=== PATIENT | female | born 1935 | race Caucasian/White ===

== ENCOUNTER 2018-09-15 14:15 | Inpatient (IN) | payer MEDICARE, BC ==
[~2018-09-15] VITALS: Ht 152.4 cm; Wt 54.4 kg
[2018-09-15] MEDS ORDERED: IV NS 0.9% 500 ML BAG IV ONE (15:30)
[2018-09-15] MEDS ORDERED: NA PHOS,M-B/NA PHOS,DI-BA 1 EA ENEMA RC ONE ×2 (15:30→15:38)
[2018-09-15] MEDS ORDERED: MAGNESIUM CITRATE 296 ML BOTTLE PO ONE (15:30)
[2018-09-15] MEDS ORDERED: MAGNESIUM CITRATE 296 ML BOTTLE ONE (15:39)
[2018-09-15 15:40] LABS: BASOPHILS # (AUTO) 0.1 /CMM (0.0-0.2); BASOPHILS % (AUTO) 0.6 % (0.0-2.0); EOSINOPHILS % (AUTO) 1.3 % (0.0-6.0); HEMATOCRIT 37 % (33-45); HEMOGLOBIN 12.3 g/dL (11.5-14.8); LYMPHOCYTES # (AUTO) 1.6 /CMM (0.8-4.8); LYMPHOCYTES % (AUTO) 15.9 % (20.0-44.0); MEAN CORPUSCULAR HGB CONC 33 g/dl (31.0-36.0); MEAN CORPUSCULAR VOLUME 87 fL (82-100); MONOCYTES # (AUTO) 1.3 /CMM (0.1-1.30); MONOCYTES % (AUTO) 12.8 % (2.0-12.0); NEUTROPHILS # (AUTO) 6.9 /CMM (1.8-8.9); NEUTROPHILS % (AUTO) 69.4 % (43.0-81.0); PLATELET COUNT (AUTO) 370 /CMM (150-450); RED BLOOD CELL COUNT(AUTO) 4.26 MIL/uL (4.0-5.2); WHITE BLOOD COUNT (AUTO) 9.9 K/uL (4.3-11.0)
[2018-09-15 15:48] LABS: CALCIUM, SERUM 9.1 mg/dL (8.5-10.1); CARBON DIOXIDE 26 mmol/L (21-32); CHLORIDE 99 mmol/L (98-107); CREATININE 0.6 mg/dL (0.6-1.3); GLUCOSE 101 mg/dL (74-106); POTASSIUM 4.1 mmol/L (3.5-5.1); SODIUM SERUM 135 mmol/L (136-145); UREA NITROGEN, BLOOD 21 mg/dL (7-18)
[2018-09-15 15:55] LABS: ALANINE AMINOTRANSFERASE 23 U/L (12-78); ALBUMIN 3.6 g/dL (3.4-5.0); ALKALINE PHOSPHATASE 82 U/L (46-116); ASPARTATE AMINOTRANSFERASE 20 U/L (15-37); BILIRUBIN,DIRECT 0.1 mg/dL (0.0-0.2); BILIRUBIN,TOTAL 0.3 mg/dL (0.2-1.0); LIPASE 161 U/L (73-393); TOTAL PROTEIN, SERUM 7.7 g/dL (6.4-8.2)
[2018-09-15] MEDS ORDERED: MAGNESIUM HYDROXIDE 30 ML UDC PO PRN (19:30)
[2018-09-15] MEDS ORDERED: MAG HYDROX/AL HYDROX/SIMETH 30 ML UDC PO PRN (19:30)
[2018-09-15] MEDS ORDERED: HYDROCODONE/APAP 5/325MG 1 EACH TABLET PO PRN (19:30)
[2018-09-15] MEDS ORDERED: ZOLPIDEM TARTRATE 5 MG TABLET PO PRN (19:30)
[2018-09-15] MEDS ORDERED: ACETAMINOPHEN 325 MG TABLET PO PRN (19:30)
[2018-09-15] MEDS ORDERED: Z GUARD REMEDY 2 OZ OINT TP PRN (19:30)
[2018-09-15] MEDS ORDERED: NA PHOS,M-B/NA PHOS,DI-BA 1 EA ENEMA RC PRN (19:30)
[2018-09-15] MEDS ORDERED: ONDANSETRON HCL/PF 4 MG/2 ML VIAL IVP PRN (19:30)
[2018-09-15] MEDS: IV D5/ 0.9% NACL 1,000 ML IV PRN ×2 (19:47→23:55)
[2018-09-15 20:00] VITALS: BP 138/90
[2018-09-15] MEDS ORDERED: MEMA10TA PO (21:18)
[2018-09-15] MEDS ORDERED: DOCU-141 PO (21:18)
[2018-09-15] MEDS ORDERED: BISA10SU61 RC (21:18)
[2018-09-15] MEDS ORDERED: MIDO10TA PO (21:18)
[2018-09-15] MEDS ORDERED: POLY17PO4 PO (21:18)
[2018-09-15] MEDS ORDERED: RIVA6CAP5 PO (21:18)
[2018-09-15] MEDS ORDERED: ACET325C5 PO ×2 (21:18)
[2018-09-15] MEDS ORDERED: LEVO75TA7 PO (21:18)
[2018-09-15] MEDS ORDERED: IV NS 0.9% 500 ML IV ONE (23:30)
[2018-09-16] MEDS: IV D5/ 0.9% NACL 1,000 ML IV PRN (06:08)
[2018-09-16 07:22] LABS: BASOPHILS % (AUTO) 0.4 % (0.0-2.0); EOSINOPHILS % (AUTO) 1.9 % (0.0-6.0); HEMATOCRIT 32 % (33-45); HEMOGLOBIN 10.9 g/dL (11.5-14.8); LYMPHOCYTES # (AUTO) 1.7 /CMM (0.8-4.8); LYMPHOCYTES % (AUTO) 23.8 % (20.0-44.0); MEAN CORPUSCULAR HGB CONC 34 g/dl (31.0-36.0); MEAN CORPUSCULAR VOLUME 85 fL (82-100); MONOCYTES % (AUTO) 14.6 % (2.0-12.0); NEUTROPHILS # (AUTO) 4.2 /CMM (1.8-8.9); NEUTROPHILS % (AUTO) 59.3 % (43.0-81.0); PLATELET COUNT (AUTO) 332 /CMM (150-450); RED BLOOD CELL COUNT(AUTO) 3.78 MIL/uL (4.0-5.2)
[2018-09-16] MEDS ORDERED: LEVOTHYROXINE SODIUM 75 MCG TABLET PO SCH (07:30)
[2018-09-16 08:00] VITALS: BP 125/71
[2018-09-16 08:09] LABS: CALCIUM, SERUM 8.2 mg/dL (8.5-10.1); CARBON DIOXIDE 23 mmol/L (21-32); CHLORIDE 106 mmol/L (98-107); CREATININE 0.5 mg/dL (0.6-1.3); GLUCOSE 98 mg/dL (74-106); MAGNESIUM 2.4 mg/dL (1.8-2.4); PHOSPHORUS 2.3 mg/dL (2.5-4.9); POTASSIUM 3.7 mmol/L (3.5-5.1); SODIUM SERUM 140 mmol/L (136-145); UREA NITROGEN, BLOOD 10 mg/dL (7-18)
[2018-09-16 08:15] LABS: CHOLESTEROL 191 mg/dL (<200); HDL CHOLESTEROL 56 mg/dL (40-60); LDL 117 mg/dL (0-99); TRIGLYCERIDES 79 mg/dL (30-150)
[2018-09-16] MEDS ORDERED: DOCUSATE SODIUM 100 MG CAPSULE PO SCH (09:00)
[2018-09-16] MEDS ORDERED: RIVASTIGMINE TARTRATE 1.5 MG CAPSULE PO SCH (09:00)
[2018-09-16] MEDS ORDERED: MIDODRINE HCL (5MG) 5 MG TABLET PO SCH (09:00)
[2018-09-16] MEDS ORDERED: MEMANTINE HCL 5 MG TABLET PO SCH (09:00)
[2018-09-16] MEDS ORDERED: POLYETHYLENE GLYCOL 3350 17 GM POWD.PACK PO SCH (09:00)
[2018-09-16] MEDS ORDERED: POLY17PO4 PO (10:41)
[2018-09-16] MEDS ORDERED: K PHOS NEUTRAL 250 MG TABLET PO ONE (11:30)
[2018-09-16] MEDS ORDERED: DOCU-141 PO (17:42)
[2018-09-25] MEDS ORDERED: SORB30SO2 GT (22:45)
== END 2018-09-16 11:30 | DRG 388 ==
LOC: ER 14:19 → EDBD 14:19 → MEDSG2 18:33
PROVIDERS: ADMIT Nurse Practitioner Acute Care; ATTEND Nurse Practitioner Acute Care
DX: K56.7 Ileus, unspecified (principal); G93.41 Metabolic encephalopathy; E87.1 Hypo-osmolality and hyponatremia; D68.59 Other primary thrombophilia; K59.00 Constipation, unspecified; E86.0 Dehydration; E03.9 Hypothyroidism, unspecified; G30.9 Alzheimer's disease, unspecified; F02.80 Dementia in other diseases classified elsewhere, unspecified severity, without behavioral disturbance, psychotic disturbance, mood disturbance, and anxiety; Z96.651 Presence of right artificial knee joint; Z95.0 Presence of cardiac pacemaker; E83.51 Hypocalcemia; E83.39 Other disorders of phosphorus metabolism; D64.9 Anemia, unspecified
CPT/HCPCS: 36415; 80048-TC; 80061-TC; 80076-TC; 83690-TC; 83735-TC; 84100-TC; 84443-TC; 85025-TC; 87081-TC; 97116-TC; 97530-TC; G0378; J7040; J7042

== ENCOUNTER 2018-09-22 10:30 | Inpatient (IN) | payer MEDICARE, BC ==
[~2018-09-22] VITALS: Ht 148.6 cm; Wt 53.1 kg
[~2018-09-22 10:30] MED LIST: ACET325C5 PO; DOCU-141 PO; LEVO75TA7 PO; MEMA10TA PO; MIDO10TA PO; POLY17PO4 PO; RIVA6CAP5 PO
--- NOTE | 2018-09-22 10:53 | NUR ---
BIB FAMILY FOR DIFFUSE ABDOMINAL AND LOWER BACK PAIN, PATIENT TRANSFERED TO BED, AT BEDSIDE, PLACED ON THE MONITOR. PENDING MD FU.
[2018-09-22] MEDS ORDERED: POLYETHYLENE GLYCOL 3350 17 GM POWD.PACK PO ONE (11:00)
[2018-09-22] MEDS ORDERED: IV NS 0.9% 500 ML BAG IV ONE (11:00)
[2018-09-22 11:12] LABS: BASOPHILS # (AUTO) 0.1 /CMM (0.0-0.2); BASOPHILS % (AUTO) 0.5 % (0.0-2.0); EOSINOPHILS % (AUTO) 0.7 % (0.0-6.0); HEMATOCRIT 36 % (33-45); HEMOGLOBIN 12.1 g/dL (11.5-14.8); LYMPHOCYTES # (AUTO) 1.2 /CMM (0.8-4.8); LYMPHOCYTES % (AUTO) 11.5 % (20.0-44.0); MEAN CORPUSCULAR HGB CONC 34 g/dl (31.0-36.0); MEAN CORPUSCULAR VOLUME 87 fL (82-100); MONOCYTES # (AUTO) 1.5 /CMM (0.1-1.30); MONOCYTES % (AUTO) 14.1 % (2.0-12.0); NEUTROPHILS # (AUTO) 7.7 /CMM (1.8-8.9); NEUTROPHILS % (AUTO) 73.2 % (43.0-81.0); PLATELET COUNT (AUTO) 424 /CMM (150-450); RED BLOOD CELL COUNT(AUTO) 4.18 MIL/uL (4.0-5.2); WHITE BLOOD COUNT (AUTO) 10.6 K/uL (4.3-11.0)
--- NOTE | 2018-09-22 11:14 | NUR ---
IV ESTABLISHED ON RAC G20, BLOOD SAMPLES OBTAINED AND SENT TO LAB. PER , TRY STRAIGHT CATH LATER, PATIENT WAS JUST RECENTLY CHANGED PRIOR TO COMING HERE AND SHE'S DRY AT THIS TIME.
--- NOTE | 2018-09-22 11:18 | NUR ---
GOT MS BED 203
[2018-09-22 11:19] LABS: CALCIUM, SERUM 9.2 mg/dL (8.5-10.1); CARBON DIOXIDE 29 mmol/L (21-32); CHLORIDE 102 mmol/L (98-107); CREATININE 0.7 mg/dL (0.6-1.3); GLUCOSE 92 mg/dL (74-106); POTASSIUM 4.6 mmol/L (3.5-5.1); SODIUM SERUM 137 mmol/L (136-145); UREA NITROGEN, BLOOD 12 mg/dL (7-18)
[2018-09-22 11:25] LABS: ALANINE AMINOTRANSFERASE 27 U/L (12-78); ALBUMIN 3.4 g/dL (3.4-5.0); ALKALINE PHOSPHATASE 86 U/L (46-116); ASPARTATE AMINOTRANSFERASE 29 U/L (15-37); BILIRUBIN,TOTAL 0.3 mg/dL (0.2-1.0); LIPASE 596 U/L (73-393); TOTAL PROTEIN, SERUM 7.3 g/dL (6.4-8.2)
[2018-09-22] MEDS ORDERED: POLY17PO4 PO (11:52)
[2018-09-22] MEDS ORDERED: SENN-168 PO (11:52)
--- NOTE | 2018-09-22 11:54 | NUR ---
REPORT GIVEN TO KEVIN Montenegro RN.
--- NOTE | 2018-09-22 12:32 | NUR ---
PATIENT TRANSFERRED TO ROOM 203 MED SURG.
--- NOTE | 2018-09-22 12:40 | NUR ---
MS FASHION MODEL NOTES Received Patient comfortable and resting in bed from ER at this time with at bedside. A/O x 1 with episodes of confusion. History of dementia. VS stable with no acute distress. Breathing even and unlabored on room air with no respiratory distress. Denies pain at this time. Skin intact. 20g PIV on RIGHT FOREARM clean, dry and intact with IVF NS running at 100ml/hr. Safety precautions in place. Bed locked and set to lowest position with side rails x 2 up. All needs rendered at this time. Will continue to monitor.
[2018-09-22] MEDS ORDERED: Z GUARD REMEDY 2 OZ OINT TP PRN (14:30)
[2018-09-22] MEDS ORDERED: ZOLPIDEM TARTRATE 5 MG TABLET PO PRN (14:30)
[2018-09-22] MEDS ORDERED: ACETAMINOPHEN 325 MG TABLET PO PRN (14:30)
[2018-09-22] MEDS ORDERED: HYDROCODONE/APAP 5/325MG 1 EACH TABLET PO PRN (14:30)
[2018-09-22] MEDS ORDERED: ONDANSETRON HCL/PF 4 MG/2 ML VIAL IVP PRN (14:30)
[2018-09-22] MEDS: IV NS 0.9% 1,000 ML IV PRN (15:34)
[2018-09-22 16:00] VITALS: BP 124/58
[2018-09-22] MEDS ORDERED: BISACODYL SUPP (10 MG) 10 MG/SUPP.RECT SUPP.RECT RC PRN (19:00)
[2018-09-22] MEDS ORDERED: MAGNESIUM CITRATE 296 ML BOTTLE PO ONE (19:00)
[2018-09-22] MEDS: LACTULOSE 10 G/15 ML UDC (PYXIS) PO SCH (19:40)
[2018-09-22] MEDS: SORBITOL SOLUTION 30 ML PO SCH (19:42)
[2018-09-22 20:00] VITALS: BP 131/96
--- NOTE | 2018-09-22 20:00 | NUR ---
MS RN CLOSING NOTES Patient comfortable and resting in bed with at bedside. A/O x 1 with episodes of confusion. History of dementia. VS stable with no acute distress. Breathing even and unlabored on room air with no respiratory distress. Denies pain at this time. Skin intact. 20g PIV on RIGHT FOREARM clean, dry and intact with IVF NS running at 100ml/hr. Safety precautions in place. Bed locked and set to lowest position with side rails x 2 up. All needs rendered at this time. Will endorse plan of care to oncoming shift.
[2018-09-22 20:04] VITALS: BP 131/96
--- NOTE | 2018-09-22 20:10 | NUR ---
RN OPENING NOTES RECEIVED PATIENT AWAKE RESTING COMFORTABLY IN BED. AT BEDSIDE. PATIENT IS A/O X 1-2. NO SIGNS OF RESPIRATORY DISTRESS. PATIENT DENIES SHORTNESS OF BREATH. IV SITE INTACT. PATIENT DENIES PAIN AT THIS TIME. SAFETY PRECAUTIONS IMPLEMENTED. CALL LIGHT WITHIN REACH. WILL CONTINUE TO MONITOR PATIENT THROUGHOUT THE SHIFT.
[2018-09-23] MEDS: IV NS 0.9% 1,000 ML IV PRN ×2 (00:11→18:26)
[2018-09-23] MEDS: LACTULOSE 10 G/15 ML UDC (PYXIS) PO SCH ×4 (00:23→20:04)
--- NOTE | 2018-09-23 01:00 | NUR ---
RN NOTES PATIENT HAD 2 BOWEL MOVEMENTS AT THIS TIME. BM WAS VERY LOOSE. WILL CONTINUE TO MONITOR PATIENT.
[2018-09-23 06:37] LABS: BASOPHILS % (AUTO) 0.4 % (0.0-2.0); EOSINOPHILS % (AUTO) 1.2 % (0.0-6.0); HEMATOCRIT 33 % (33-45); HEMOGLOBIN 11.1 g/dL (11.5-14.8); LYMPHOCYTES # (AUTO) 1.6 /CMM (0.8-4.8); LYMPHOCYTES % (AUTO) 16.6 % (20.0-44.0); MEAN CORPUSCULAR HGB CONC 33 g/dl (31.0-36.0); MEAN CORPUSCULAR VOLUME 85 fL (82-100); MONOCYTES % (AUTO) 10.4 % (2.0-12.0); NEUTROPHILS # (AUTO) 6.9 /CMM (1.8-8.9); NEUTROPHILS % (AUTO) 71.4 % (43.0-81.0); PLATELET COUNT (AUTO) 425 /CMM (150-450); RED BLOOD CELL COUNT(AUTO) 3.89 MIL/uL (4.0-5.2); WHITE BLOOD COUNT (AUTO) 9.6 K/uL (4.3-11.0)
[2018-09-23 06:47] LABS: CALCIUM, SERUM 8.2 mg/dL (8.5-10.1); CARBON DIOXIDE 24 mmol/L (21-32); CHLORIDE 104 mmol/L (98-107); CREATININE 0.5 mg/dL (0.6-1.3); GLUCOSE 91 mg/dL (74-106); MAGNESIUM 2.2 mg/dL (1.8-2.4); PHOSPHORUS 2.7 mg/dL (2.5-4.9); SODIUM SERUM 139 mmol/L (136-145); UREA NITROGEN, BLOOD 7 mg/dL (7-18)
--- NOTE | 2018-09-23 06:50 | NUR ---
RN CLOSING NOTES PATIENT IS RESTING COMFORTABLY IN BED. NO SIGNS OF RESPIRATORY DISTRESS. NO SIGNS OF SHORTNESS OF BREATH. IV SITE INTACT. NO SIGNS OF PAIN OR DISCOMFORT AT THIS TIME. SAFETY PRECAUTIONS IMPLEMENTED. CALL LIGHT WITHIN REACH. ENDORSE TO AM SHIFT.
--- NOTE | 2018-09-23 07:25 | NUR ---
RN OPENING NOTE PT WAS RECEIVED IN BED AT LOWEST AND LOCKED POSITION WITH SIDE RAILS UP, A/O X1-2, BREATHING EVEN AND UNLABORED ON RA, NO PAIN OR DISTRESS, NOTED TO BE INCONTINENT, IV IS PATENT AND INTACT, SAFETY PRECAUTIONS IN PLACE, CALL LIGHT WITHIN REACH, WILL MONITOR ACCORDINGLY
[2018-09-23 08:00] VITALS: BP 137/82
[2018-09-23] MEDS: SORBITOL SOLUTION 30 ML PO SCH (09:00)
--- NOTE | 2018-09-23 09:04 | NUR ---
RN NOTE SORBITOL WAS HELD THIS AM DUE THE PATIENT HAVING 3 SOFT/LOOSE STOOLS ACCORDING TO MANAGER TRANSFER. WILL MONITOR PT ACCORDINGLY.
--- NOTE | 2018-09-23 12:00 | NUR ---
RN NOTE URINE COLLECTED FOR UA AT THIS TIME
[2018-09-23 16:00] VITALS: BP 127/67
[2018-09-23 16:00] LABS: APPEARANCE,URINE CLEAR (CLEAR); BILIRUBIN,URINE NEGATIVE (NEGATIVE); BLOOD, URINE NEGATIVE Ery/uL (NEGATIVE); COLOR,URINE YELLOW (YELLOW); KETONES,URINE NEGATIVE (NEGATIVE); LEUKOCYTE ESTERASE ,URINE NEGATIVE (NEGATIVE); NITRITE, URINE NEGATIVE (NEGATIVE); PH,URINE 7.5 (5.0-8.0); PROTEIN,URINE NEGATIVE (NEGATIVE); UGLUCOSE NEGATIVE (NEGATIVE); UROBILINOGEN,URINE 0.2 EU/dL (0.2)
--- NOTE | 2018-09-23 19:14 | NUR ---
RN CLOSING NOTE PT IN BED AT LOWEST AND LOCKED POSITION WITH SIDE RAILS UP, A/O X1-2, BREATHING EVEN AND UNLABORED, NO PAIN OR DISTRESS, IV IS PATENT AND INTACT, SAFETY PRECAUTIONS IN PLACE, CALL LIGHT WITHIN REACH, ALL NEEDS ATTENDED TO, WILL ENDORSE TO ORGAN ASSEMBLER RN FOR ANISH.
[2018-09-23 20:06] VITALS: BP 117/83
[2018-09-24] MEDS: LACTULOSE 10 G/15 ML UDC (PYXIS) PO SCH ×4 (00:46→18:26)
[2018-09-24] MEDS: IV NS 0.9% 1,000 ML IV PRN (05:33)
--- NOTE | 2018-09-24 06:49 | NUR ---
MS RN NOTES AWAKE & RESPONSIVE. NOT IN ANY DISTRESS. NO SOB NOTED. DENIES ANY PAIN OR DISCOMFORT AT THIS TIME. WITH IVF INFUSING WELL. AM CARE DONE. MONITORED ACCORDINGLY. CALL LIGHT WITHIN REACH. BED IN LOWEST POSITION. SR UP X 3 FOR SAFETY WITH BED ALARM ON. WILL ENDORSE TO NEXT SHIFT.
[2018-09-24 06:54] LABS: ALANINE AMINOTRANSFERASE 24 U/L (12-78); ALBUMIN 3.3 g/dL (3.4-5.0); ALKALINE PHOSPHATASE 90 U/L (46-116); ASPARTATE AMINOTRANSFERASE 22 U/L (15-37); BILIRUBIN,TOTAL 0.2 mg/dL (0.2-1.0); CALCIUM, SERUM 8.6 mg/dL (8.5-10.1); CARBON DIOXIDE 23 mmol/L (21-32); CHLORIDE 101 mmol/L (98-107); CREATININE 0.5 mg/dL (0.6-1.3); GLUCOSE 90 mg/dL (74-106); LIPASE 135 U/L (73-393); MAGNESIUM 2.1 mg/dL (1.8-2.4); PHOSPHORUS 3.1 mg/dL (2.5-4.9); SODIUM SERUM 135 mmol/L (136-145); TOTAL PROTEIN, SERUM 6.5 g/dL (6.4-8.2); UREA NITROGEN, BLOOD 6 mg/dL (7-18)
[2018-09-24 07:31] LABS: BASOPHILS # (AUTO) 0.1 /CMM (0.0-0.2); BASOPHILS % (AUTO) 0.6 % (0.0-2.0); EOSINOPHILS % (AUTO) 1.1 % (0.0-6.0); HEMATOCRIT 36 % (33-45); HEMOGLOBIN 11.9 g/dL (11.5-14.8); LYMPHOCYTES # (AUTO) 1.3 /CMM (0.8-4.8); LYMPHOCYTES % (AUTO) 15.2 % (20.0-44.0); MEAN CORPUSCULAR HGB CONC 33 g/dl (31.0-36.0); MEAN CORPUSCULAR VOLUME 87 fL (82-100); MONOCYTES % (AUTO) 11.9 % (2.0-12.0); NEUTROPHILS # (AUTO) 6.2 /CMM (1.8-8.9); NEUTROPHILS % (AUTO) 71.2 % (43.0-81.0); PLATELET COUNT (AUTO) 445 /CMM (150-450); RED BLOOD CELL COUNT(AUTO) 4.18 MIL/uL (4.0-5.2); WHITE BLOOD COUNT (AUTO) 8.7 K/uL (4.3-11.0)
--- NOTE | 2018-09-24 07:44 | NUR ---
MS 2 RN AM NOTES PT WAS RECEIVED IN BED AT LOWEST AND LOCKED POSITION WITH SIDE RAILS UP, A/O X1-2, BREATHING EVEN AND UNLABORED ON RA, NO PAIN OR DISTRESS, INCONTINENT, IV IS PATENT AND INTACT WITH IVF NS AT 10O ML/HR TO RT AC INFUSING WELL, SAFETY PRECAUTIONS IN PLACE, CALL LIGHT WITHIN REACH, WILL MONITOR ACCORDINGLY
[2018-09-24 08:00] VITALS: BP 148/86
[2018-09-24] MEDS: SORBITOL SOLUTION 30 ML PO SCH (08:02)
[2018-09-24] MEDS ORDERED: IV NS 0.9% 1,000 ML BAG IV ONE (09:30)
[2018-09-24] MEDS: RIVASTIGMINE TARTRATE 1.5 MG CAPSULE PO SCH ×2 (10:01→17:10)
[2018-09-24] MEDS: MEMANTINE HCL 5 MG TABLET PO SCH ×2 (10:02→17:09)
[2018-09-24] MEDS: LEVOTHYROXINE SODIUM 75 MCG TABLET PO SCH (10:32)
[2018-09-24] MEDS: ENSURE ENLIVE 237 ML LIQUID (VANILLA) PO SCH ×2 (12:35→17:10)
[2018-09-24 16:00] VITALS: BP 140/84
--- NOTE | 2018-09-24 19:30 | NUR ---
RECEIVED PATIENT IN BED AWAKE. AO X 1, VERBALLY RESPONSIVE. NO ACUTE DISTRESS NOTED. NO SIGNS OF PAIN NOTED. IV SITE PATENT, INTACT; IVF INFUSING ORDERED. SAFETY REMINDERS GIVEN. ON LOW BED WITH BILATERAL UPPER SIDE RAILS UP. CALL OTERO WITHIN EASY REACH. WILL CONTINUE TO MONITOR.
[2018-09-24 20:00] VITALS: BP 131/75
[2018-09-25] MEDS: LACTULOSE 10 G/15 ML UDC (PYXIS) PO SCH ×4 (01:00→19:00)
--- NOTE | 2018-09-25 06:00 | NUR ---
PATIENT ASLEEP, EASILY AROUSABLE. RESPIRATIONS EVEN. NO SIGNS OF PAIN NOTED. DUE MEDS GIVEN WITH NO ASE NOTED. IVF INFUSING ORDERED. NEEDS ATTENDED. KEPT CLEAN, DRY AND COMFORTABLE. WILL GIVE REPORT TO DAY SHIFT FOR CONTINUITY OF CARE.
--- NOTE | 2018-09-25 07:02 | NUR ---
LOOSE BM DURING DAY SHIFT YESTERDAY. LACTULOSE HELD.
[2018-09-25] MEDS: IV NS 0.9% 1,000 ML IV PRN (07:18)
[2018-09-25 08:00] VITALS: BP 119/80
[2018-09-25] MEDS: LEVOTHYROXINE SODIUM 75 MCG TABLET PO SCH (08:26)
[2018-09-25] MEDS: SORBITOL SOLUTION 30 ML PO SCH (08:27)
[2018-09-25] MEDS: ENSURE ENLIVE 237 ML LIQUID (VANILLA) PO SCH ×3 (08:27→17:00)
[2018-09-25] MEDS: MEMANTINE HCL 5 MG TABLET PO SCH ×2 (08:27→16:14)
[2018-09-25] MEDS: RIVASTIGMINE TARTRATE 1.5 MG CAPSULE PO SCH ×2 (09:00→16:14)
[2018-09-25 12:53] LABS: BASOPHILS % (AUTO) 0.3 % (0.0-2.0); EOSINOPHILS % (AUTO) 0.1 % (0.0-6.0); HEMATOCRIT 37 % (33-45); HEMOGLOBIN 12.2 g/dL (11.5-14.8); LYMPHOCYTES # (AUTO) 0.9 /CMM (0.8-4.8); LYMPHOCYTES % (AUTO) 6.6 % (20.0-44.0); MEAN CORPUSCULAR HGB CONC 33 g/dl (31.0-36.0); MEAN CORPUSCULAR VOLUME 85 fL (82-100); MONOCYTES # (AUTO) 1.8 /CMM (0.1-1.30); MONOCYTES % (AUTO) 13.6 % (2.0-12.0); NEUTROPHILS # (AUTO) 10.4 /CMM (1.8-8.9); NEUTROPHILS % (AUTO) 79.4 % (43.0-81.0); PLATELET COUNT (AUTO) 447 /CMM (150-450); RED BLOOD CELL COUNT(AUTO) 4.36 MIL/uL (4.0-5.2); WHITE BLOOD COUNT (AUTO) 13.1 K/uL (4.3-11.0)
--- NOTE | 2018-09-25 13:29 | NUR ---
held lactulose due due to loose BM
[2018-09-25 13:44] LABS: CALCIUM, SERUM 9.3 mg/dL (8.5-10.1); CARBON DIOXIDE 25 mmol/L (21-32); CHLORIDE 97 mmol/L (98-107); CREATININE 0.5 mg/dL (0.6-1.3); GLUCOSE 111 mg/dL (74-106); POTASSIUM 3.6 mmol/L (3.5-5.1); SODIUM SERUM 131 mmol/L (136-145); UREA NITROGEN, BLOOD 6 mg/dL (7-18)
[2018-09-25 16:00] VITALS: BP 116/62
--- NOTE | 2018-09-25 18:15 | NUR ---
RECEIVED CALL FROM ROSENDO GTZ. PT WILL BE [facility] AT 2000PM [facility]
--- NOTE | 2018-09-25 18:16 | NUR ---
PAGED DR. DAWNA AVINA TO INFORM.
--- NOTE | 2018-09-25 18:43 | NUR ---
REPORT CALLED TO EVELYNE TEJADA
--- NOTE | 2018-09-25 19:40 | NUR ---
MS RN NOTES RECEIVED PATIENT AWAKE IN BED AND WATCHING TV WITH NO DISTRESS NOTED. CALL LIGHT WITHIN REACH. AT BEDSIDE. NO C/O PAIN OR DISCOMFORT. PERIPHERAL LINE INTACT AND PATENT. BED IN LOW LOCK SETTING WITH BED ALARM ON AND FUNCTIONING PROPERLY. WILL CONTINUE TO MONITOR.
--- NOTE | 2018-09-25 19:40 | NUR ---
patient in stable condition , awaiting for transfer to [facility]. Report given to Lisset STUBBS for ANISH.
[2018-09-25 20:00] VITALS: BP 123/60
--- NOTE | 2018-09-25 20:45 | NUR ---
PATIENT PICKED UP BY [facility]. PATIENT IN GOOD STABLE CONDITION. NO C/O PAIN OR DISCOMFORT. PERIPHERAL LINE IN RFA #20 REMOVED AND TOLERATED WELL. NO ACTIVE BLEEDING NOTED. SKIN REMAINS INTACT WITH NO NEW SKIN BREAKDOWN OR DISCOLORATION NOTED. ALL BELONGINGS AND DISCHARGE PAPERWORK TAKEN WITH PATIENT.
[2018-09-25] MEDS ORDERED: SORB30SO2 GT (22:45)
== END 2018-09-25 20:38 | DRG 391 ==
LOC: ER 10:33 → MEDSG2 11:52
PROVIDERS: ADMIT Nurse Practitioner Acute Care; ATTEND Nurse Practitioner Acute Care
DX: K59.00 Constipation, unspecified (principal); R53.2 Functional quadriplegia; G93.41 Metabolic encephalopathy; G30.9 Alzheimer's disease, unspecified; F02.80 Dementia in other diseases classified elsewhere, unspecified severity, without behavioral disturbance, psychotic disturbance, mood disturbance, and anxiety; E03.9 Hypothyroidism, unspecified; Z95.0 Presence of cardiac pacemaker; Z96.651 Presence of right artificial knee joint; I95.9 Hypotension, unspecified; M48.54XS Collapsed vertebra, not elsewhere classified, thoracic region, sequela of fracture; M51.37 Other intervertebral disc degeneration, lumbosacral region
CPT/HCPCS: 36415; 80048-TC; 80053-TC; 80076-TC; 81000-TC; 83690-TC; 83735-TC; 84100-TC; 85025-TC; 87081-TC; 97110-TC; 97112-TC; 97116-TC; 97530-TC; G0378; J7030; J7040

== ENCOUNTER 2018-10-24 07:22 | Emergency (ER) | payer MEDICARE, BC ==
[~2018-10-24] VITALS: Ht 139.7 cm; Wt 52.6 kg
[~2018-10-24 07:22] MED LIST changes: -DOCU-141 PO; +SENN-168 PO; +SORB30SO2 GT
[2018-10-24] MEDS ORDERED: IV NS 0.9% 500 ML BAG IV ONE (08:00)
[2018-10-24 08:27] LABS: BASOPHILS % (AUTO) 0.3 % (0.0-2.0); HEMATOCRIT 37 % (33-45); HEMOGLOBIN 12.2 g/dL (11.5-14.8); LYMPHOCYTES # (AUTO) 1.3 /CMM (0.8-4.8); LYMPHOCYTES % (AUTO) 16.6 % (20.0-44.0); MEAN CORPUSCULAR HGB CONC 33 g/dl (31.0-36.0); MEAN CORPUSCULAR VOLUME 86 fL (82-100); MONOCYTES # (AUTO) 0.9 /CMM (0.1-1.30); MONOCYTES % (AUTO) 10.7 % (2.0-12.0); NEUTROPHILS # (AUTO) 5.8 /CMM (1.8-8.9); NEUTROPHILS % (AUTO) 71.4 % (43.0-81.0); PLATELET COUNT (AUTO) 358 /CMM (150-450); RED BLOOD CELL COUNT(AUTO) 4.31 MIL/uL (4.0-5.2); WHITE BLOOD COUNT (AUTO) 8.1 K/uL (4.3-11.0)
[2018-10-24] MEDS ORDERED: MIDO5TAB PO (08:30)
[2018-10-24 08:40] LABS: CALCIUM, SERUM 9.5 mg/dL (8.5-10.1); CARBON DIOXIDE 24 mmol/L (21-32); CHLORIDE 103 mmol/L (98-107); CREATININE 0.5 mg/dL (0.6-1.3); GLUCOSE 93 mg/dL (74-106); POTASSIUM 3.9 mmol/L (3.5-5.1); SODIUM SERUM 138 mmol/L (136-145); UREA NITROGEN, BLOOD 16 mg/dL (7-18)
[2018-10-24 08:46] LABS: ALANINE AMINOTRANSFERASE 26 U/L (12-78); ALBUMIN 3.4 g/dL (3.4-5.0); ALKALINE PHOSPHATASE 80 U/L (46-116); ASPARTATE AMINOTRANSFERASE 21 U/L (15-37); BILIRUBIN,DIRECT 0.1 mg/dL (0.0-0.2); BILIRUBIN,TOTAL 0.3 mg/dL (0.2-1.0); TOTAL PROTEIN, SERUM 7.2 g/dL (6.4-8.2)
[2018-10-24] MEDS ORDERED: LIDOCAINE 1% INJ 50 ML MDV IJ ONE (09:44)
[2018-10-24 10:27] VITALS: BP 127/70
--- NOTE | 2018-10-24 10:28 | NUR ---
Spouse and Daughter spoke with provider and refusing to be admitted opts to go back home.For discharge ACI given Parent verbalized understanding. Home ambulatory Stable
== END 2018-10-24 10:30 | disposition home or self-care (01) ==
LOC: ER 07:23 → UNDOADMIN 09:30 → TELE 09:30
DX: S01.511A Laceration without foreign body of lip, initial encounter (principal); G30.9 Alzheimer's disease, unspecified; Z95.0 Presence of cardiac pacemaker; Z98.890 Other specified postprocedural states; Z79.899 Other long term (current) drug therapy; W18.39XA Other fall on same level, initial encounter; Y93.89 Activity, other specified; Y92.091 Bathroom in other non-institutional residence as the place of occurrence of the external cause; Y99.8 Other external cause status
CPT/HCPCS: 12011; 36415; 70450; 71045; 80048; 80076; 84484; 85025; 85730; 86850; 93005; 99284; A6402; A6403; J3490; J7040

== ENCOUNTER 2019-07-29 09:44 | Emergency (ER) | payer MEDICARE, BC ==
[~2019-07-29] VITALS: Ht 152.4 cm; Wt 51.7 kg
[~2019-07-29 09:44] MED LIST changes: -ACET325C5 PO; +ACET325C7 PO; -MIDO10TA PO; +MIDO5TAB4 PO
--- NOTE | 2019-07-29 09:52 | NUR ---
dr. ellsworth at bedside for eval.
--- NOTE | 2019-07-29 09:55 | NUR ---
BIBRA 77 FROM [facility] C/O WITNESSED SYNCOPAL EPISODE AROUND 9AM, -TRAUMA B, PATIENT A/OX2-3, BREATHING EVEN AND UNLABORED, NO SOB NOTED, NEEDS ATTENDED, KEPT COMFORTABLE.
[2019-07-29] MEDS ORDERED: POLY15DR40 EACHEYE (09:57)
[2019-07-29] MEDS ORDERED: LACT10SO PO (09:57)
[2019-07-29] MEDS ORDERED: FOLI0.8T PO (09:57)
[2019-07-29] MEDS ORDERED: CHOL500052 PO (09:57)
[2019-07-29 10:23] LABS: MONOCYTES # (AUTO) 0.8 /CMM (0.1-1.30)
[2019-07-29 10:28] LABS: BASOPHILS % (AUTO) 0.4 % (0.0-2.0); EOSINOPHILS % (AUTO) 2.8 % (0.0-6.0); HEMATOCRIT 37 % (33-45); HEMOGLOBIN 11.6 g/dL (11.5-14.8); LYMPHOCYTES # (AUTO) 1.5 /CMM (0.8-4.8); LYMPHOCYTES % (AUTO) 20.3 % (20.0-44.0); MEAN CORPUSCULAR HGB CONC 32 g/dl (31.0-36.0); MEAN CORPUSCULAR VOLUME 87 fL (82-100); MONOCYTES % (AUTO) 10.9 % (2.0-12.0); NEUTROPHILS % (AUTO) 65.6 % (43.0-81.0); PLATELET COUNT (AUTO) 295 /CMM (150-450); RED BLOOD CELL COUNT(AUTO) 4.19 MIL/uL (4.0-5.2); WHITE BLOOD COUNT (AUTO) 7.6 K/uL (4.3-11.0)
[2019-07-29 10:30] LABS: CALCIUM, SERUM 8.7 mg/dL (8.5-10.1); CARBON DIOXIDE 25 mmol/L (21-32); CHLORIDE 107 mmol/L (98-107); CREATININE 0.6 mg/dL (0.6-1.3); GLUCOSE 104 mg/dL (74-106); POTASSIUM 3.4 mmol/L (3.5-5.1); SODIUM SERUM 141 mmol/L (136-145); UREA NITROGEN, BLOOD 14 mg/dL (7-18)
--- NOTE | 2019-07-29 10:56 | NUR ---
PATIENT HAD A LARGE BM, CLEANSED AND PERICARE PROVIDED.
[2019-07-29 11:03] LABS: APPEARANCE,URINE Clear (CLEAR); BILIRUBIN,URINE Negative (NEGATIVE); BLOOD, URINE Negative Ery/uL (NEGATIVE); COLOR,URINE Yellow (YELLOW); KETONES,URINE Negative (NEGATIVE); LEUKOCYTE ESTERASE ,URINE Negative (NEGATIVE); NITRITE, URINE Negative (NEGATIVE); PROTEIN,URINE Trace mg/dl (NEGATIVE); UGLUCOSE Negative (NEGATIVE); UROBILINOGEN,URINE 0.2 EU/dL (0.2)
[2019-07-29 11:05] LABS: BACTERIA,URINE Rare /HPF (None Seen); RBC,URINE 0-2 /HPF (0-2); SQUAMOUS EPITHELIAL CELL,UR Few /HPF (None Seen); WBC,URINE 0-2 /HPF (0-3)
--- NOTE | 2019-07-29 11:28 | NUR ---
CALLED TRANSPORT [facility] [phone] JACEY ETA IS 60 MINS TRIP #[id number]
--- NOTE | 2019-07-29 12:56 | NUR ---
Patient a/ox1-2, breathing even and unlabored, no sob noted. Needs attended. IV removed. Catheter intact and site benign. Pressure and 4x4 applied to site. No bleeding noted.Patient discharged to home in stable condition. Written and verbal after care instructions given. Patient verbalizes understanding of instruction.
[2019-07-29 12:57] VITALS: BP 133/72
== END 2019-07-29 12:57 ==
LOC: ER 09:46
DX: R40.4 Transient alteration of awareness (principal); G30.9 Alzheimer's disease, unspecified; F02.80 Dementia in other diseases classified elsewhere, unspecified severity, without behavioral disturbance, psychotic disturbance, mood disturbance, and anxiety; E03.9 Hypothyroidism, unspecified; Z95.0 Presence of cardiac pacemaker; Z96.651 Presence of right artificial knee joint; Z79.899 Other long term (current) drug therapy
CPT/HCPCS: 36415; 71045-TC; 80048-TC; 81000-TC; 82962-TC; 84484-TC; 85025-TC; 85730-TC

== ENCOUNTER 2019-10-06 11:35 | Emergency (ER) | payer MEDICARE, BC ==
[~2019-10-06] VITALS: Ht 154.9 cm; Wt 46.7 kg
[~2019-10-06 11:35] MED LIST changes: -ACET325C7 PO; +CHOL500052 PO; +FOLI0.8T PO; +LACT10SO PO; +POLY15DR40 EACHEYE; +RIVA6CAP11 PO; -RIVA6CAP5 PO; -SENN-168 PO; +SENN-261 PO; -SORB30SO2 GT
[2019-10-06] MEDS ORDERED: IV NS 0.9% 1,000 ML BAG IV ONE (12:00)
--- NOTE | 2019-10-06 12:07 | NUR ---
NAGA FROM [facility] ASSISTED LIVING. TO ER BED 7. AAOX1. NOT IN RESP DISTRESS. BROUGHT IN ON GURNEY. PT WAS SENT BY PMD FOR ABNORMAL LAB OF NA = 157 ON HER ROUTINE BLOOD WORK. NO MEDICAL COMPLAINT AND DENIES OF ANY PAIN. MD WAS AT BEDSIDE FOR EVAL. ORDERS RECEIVED, NOTED AND CARRIED OUT. IV LINE OBTAINED ON LFA 22G, BLOOD DRAWN AND GIVEN TO HONING MACHINE SET UP OPERATOR AT BEDSIDE. PT ON MONITOR
[2019-10-06 12:10] LABS: BASOPHILS % (AUTO) 0.6 % (0.0-2.0); EOSINOPHILS % (AUTO) 0.9 % (0.0-6.0); HEMATOCRIT 39 % (33-45); HEMOGLOBIN 12.7 g/dL (11.5-14.8); LYMPHOCYTES # (AUTO) 1.7 /CMM (0.8-4.8); LYMPHOCYTES % (AUTO) 21.3 % (20.0-44.0); MEAN CORPUSCULAR HGB CONC 33 g/dl (31.0-36.0); MEAN CORPUSCULAR VOLUME 87 fL (82-100); MONOCYTES % (AUTO) 12.4 % (2.0-12.0); NEUTROPHILS # (AUTO) 5.1 /CMM (1.8-8.9); NEUTROPHILS % (AUTO) 64.8 % (43.0-81.0); PLATELET COUNT (AUTO) 311 /CMM (150-450); RED BLOOD CELL COUNT(AUTO) 4.51 MIL/uL (4.0-5.2); WHITE BLOOD COUNT (AUTO) 7.9 K/uL (4.3-11.0)
[2019-10-06] MEDS ORDERED: SIME180C16 PO (12:17)
[2019-10-06] MEDS ORDERED: ONDA4TAB11 PO (12:17)
[2019-10-06] MEDS ORDERED: DOCU-141 PO (12:17)
[2019-10-06] MEDS ORDERED: MAGN400O6 PO (12:17)
[2019-10-06] MEDS ORDERED: BISA10SU11 RC (12:17)
[2019-10-06 12:24] LABS: CALCIUM, SERUM 8.9 mg/dL (8.5-10.1); CARBON DIOXIDE 26 mmol/L (21-32); CHLORIDE 103 mmol/L (98-107); CREATININE 0.7 mg/dL (0.6-1.3); GLUCOSE 103 mg/dL (74-106); POTASSIUM 3.7 mmol/L (3.5-5.1); SODIUM SERUM 136 mmol/L (136-145); UREA NITROGEN, BLOOD 8 mg/dL (7-18)
[2019-10-06 12:28] LABS: ALANINE AMINOTRANSFERASE 23 U/L (12-78); ALBUMIN 3.5 g/dL (3.4-5.0); ALKALINE PHOSPHATASE 98 U/L (46-116); ASPARTATE AMINOTRANSFERASE 22 U/L (15-37); BILIRUBIN,DIRECT 0.1 mg/dL (0.0-0.2); BILIRUBIN,TOTAL 0.3 mg/dL (0.2-1.0); LIPASE 172 U/L (73-393); TOTAL PROTEIN, SERUM 7.1 g/dL (6.4-8.2)
--- NOTE | 2019-10-06 13:38 | NUR ---
CALLED [facility] FOR A BLS TRANSPORT TO [facility]. ETA 1400.
--- NOTE | 2019-10-06 13:49 | NUR ---
MED RECON DONE.PT FROM [facility] [phone] ROOM 319A, PCP LUCIA MUNIZ.
--- NOTE | 2019-10-06 14:33 | NUR ---
report given to Lester at the [facility]. [facility] at bedside for pt transport back to facility.
--- NOTE | 2019-10-06 14:39 | NUR ---
PT LEFT ON [facility] W/ 2 AMBULANCE STAFF. PT IS STABLE FOR TRANSPORT
--- NOTE | 2019-10-06 14:39 | NUR ---
covid swab done and sent to lab
[2019-10-06 14:40] VITALS: BP 121/78
== END 2019-10-06 14:41 ==
LOC: ER 11:39
DX: E86.0 Dehydration (principal); G30.9 Alzheimer's disease, unspecified; F02.80 Dementia in other diseases classified elsewhere, unspecified severity, without behavioral disturbance, psychotic disturbance, mood disturbance, and anxiety; E03.9 Hypothyroidism, unspecified; Z79.890 Hormone replacement therapy; Z95.0 Presence of cardiac pacemaker; Z96.651 Presence of right artificial knee joint; Z20.828 Contact with and (suspected) exposure to other viral communicable diseases
CPT/HCPCS: 36415; 71045; 80048; 80076; 83690; 84484; 85025; 93005; 96360; 99285; J7030; U0003-CS